=== PATIENT | male | born 1975 | race American Indian/Alaskan Native ===

== ENCOUNTER 2018-06-18 13:23 | Emergency (ER) | payer SELFPAY ==
[2018-06-18 13:43] VITALS: BP 114/81
--- NOTE | 2018-06-18 14:53 | Emergency Department Report ---
Chief Complaint: Medical Clearance Stated Complaint: PAIN Time Seen by Provider: 06/18/18 14:50 - HPI History of Present Illness: 43-year-old male presents to the emergency department with complaint of a 4 to five-day history of increased fatigue, chills and sweats and lightheadedness/dizziness. Over the weekend the patient was doing some cleaning with some strong chemicals and also ended up sleeping in the same area. Since that time, up until today, the patient says that he has been doing nothing but sleeping. He is having intermittent chills and sweats and says that he has had to change his shirt multiple times because of this. He denies any chest pain, cough, diagnosed fever. No past medical history. He has not taken anything for her symptoms prior to arrival. - ROS Review of Systems: Positive for fatigue, chills, sweats, dizziness/lightheadedness Negative for chest pain, shortness of breath, cough - Exam Vital Signs: Vital Signs 06/18/18 13:40 Temperature 99 F Pulse Rate 98 H Respiratory 18 Rate Blood Pressure 114/81 O2 Sat by Pulse 100 Oximetry Physical Exam: Patient is awake and alert and in no acute distress. Heart and lung sounds are normal to auscultation. Cranial nerves intact. MSE screening note: Focused history and physical exam performed. Due to findings the following was ordered: I have ordered a CBC, BMP, TSH and rapid flu. ED Disposition for MSE Condition: Stable
[2018-06-18 15:15] LABS: Hematocrit 46.8 % (35.5-45.6); Hemoglobin 15.6 gm/dl (11.8-15.2); Mean Corpuscular HGB Conc 33 % (32-34); Mean Corpuscular Hemoglobin 31 pg (28-32); Mean Corpuscular Volume 93 fl (84-94); Platelet Count 158 K/mm3 (140-440); Red Blood Count 5.05 M/mm3 (3.65-5.03); Red Cell Distribution Width 13.7 % (13.2-15.2)
[2018-06-18 15:34] LABS: BUN/Creatinine Ratio 7; Blood Urea Nitrogen 11 mg/dL (9-20); Calcium 9.1 mg/dL (8.4-10.2); Hemolysis Index 5
--- NOTE | 2018-06-18 16:23 | XRay Report ---
FINAL REPORT EXAM: XR CHEST ROUTINE 2V HISTORY: COUGH TECHNIQUE: Two view chest PA and lateral PRIORS: None. FINDINGS: Cardiac and mediastinal contours are unremarkable. No focal pulmonary infiltrate is identified. No pleural fluid collection seen. Pulmonary vasculature is unremarkable. IMPRESSION: Negative two-view chest
--- NOTE | 2018-06-18 17:12 | Emergency Department Report ---
Minor Respiratory - HPI Chief Complaint: Medical Clearance Stated Complaint: PAIN Time Seen by Provider: 06/18/18 14:50 Duration: 3 Days Pain Location: Chest Severity: mild Minor Respiratory: Yes Able to Tolerate Fluids, No Rhinorrhea, No Sore Throat, No Ear Pain, No Cough, No Sick Contacts, No Hemoptysis, No Chest Pain, No Shortness of Breath, No Fever Other History: She has a 43-year-old male who presents to the ER complaining of back pain, cold sweats, and dizziness. He states that this occurred after cleaning with some chemicals on Saturday. Vital signs are stable. He nontoxic- appearing his vital signs are stable and he has no fever. ED Review of Systems ROS: Stated complaint: PAIN Other details as noted in HPI Comment: All other systems reviewed and negative Constitutional: chills. denies: fever Eyes: denies: eye pain ENT: denies: ear pain, throat pain Respiratory: cough Cardiovascular: denies: palpitations Endocrine: denies: flushing Gastrointestinal: denies: nausea Genitourinary: denies: urgency Musculoskeletal: denies: back pain Skin: denies: rash Neurological: denies: headache Psychiatric: denies: anxiety Hematological/Lymphatic: denies: easy bleeding ED Past Medical Hx - Past Medical History Previous Medical History?: No - Surgical History Past Surgical History?: No - Family History Family history: no significant - Social History Smoking Status: Never Smoker Substance Use Type: Alcohol - Medications Home Medications: Home Medications Medication Instructions Recorded Confirmed Last Taken Type methylPREDNISolone [Medrol] 4 mg PO DAILY #1 tab.ds.pk 06/18/18 Unknown Rx Minor Respiratory Exam - Exam General: Vital signs noted. No distress. Alert and acting appropriately. HEENT: Yes Moist Mucous Membranes, No Pharyngeal Erythema, No Pharyngeal Exudates, No Rhinorrhea, No Conjuctival Injection, No Frontal Tenderness, No Maxillary Tenderness Ear: Neither TM Bulge, Neither TM Erythema, Neither EAC Pain, Neither EAC Discharge Neck: Yes Supple, No Adenopathy Lungs: Yes Good Air Exchange, No Wheezes, No Ronchi, No Stridor, No Cough, No Labored Respirations, No Retractions, No Use of Accessory Muscles Heart: Yes Regular, No Murmur Abdomen: Yes Normal Bowel Sounds, No Tenderness, No Peritoneal Signs Skin: No Rash, No Edema Neurologic: Alert and oriented, no deficits. Musculoskeletal: Unremarkable. ED Course Vital Signs 06/18/18 13:40 Temperature 99 F Pulse Rate 98 H Respiratory 18 Rate Blood Pressure 114/81 O2 Sat by Pulse 100 Oximetry ED Medical Decision Making - Lab Data Result diagrams: 06/18/18 15:04 06/18/18 15:04 - Radiology Data Radiology results: report reviewed, image reviewed - Medical Decision Making Patient is nontoxic in appearance. He has an unremarkable physical exam. He states that he went to work today and they sent him home because he said he didn't feel good. He is being given a work note. He is also been given referra l to primary care doctor should his symptoms persist. I suspect this is just a pneumonitis from working with chemicals in a closed space. There is no evidence of pulmonary edema on chest x-ray and his labs are all normal. I will send him home with a prednisone Dosepak and [id number] symptom relief Critical care attestation.: If time is entered above; I have spent that time in minutes in the direct care of this critically ill patient, excluding procedure time. ED Disposition Clinical Impression: Pneumonitis Disposition: DC-01 TO HOME OR SELFCARE Is pt being admited?: No Does the pt Need Aspirin: No Condition: Stable Instructions: Chemical Pneumonitis (ED) Additional Instructions: hydrate well with water meds as ordered today diet and activity as tolerated follow up with MD below if it persists see below Prescriptions: methylPREDNISolone [Medrol] 4 mg PO DAILY #1 tab.ds.pk Referrals: AUDREY CABRERA MD [Primary Care Provider] - 3-5 Days SHAYAN SUAREZ MD [Staff Physician] - 3-5 Days Time of Disposition: 17:09
[2018-06-18 17:13] LABS: Band Neutrophils # (Manual) 0.1 K/mm3; Basophils % (Manual) 0 % (0.0-1.8); Eosinophils % (Manual) 0 % (0.0-4.3); Large Platelets Few; Platelet Estimate Consistent w Auto; RBC Morphology Normal; Total Cells Counted 100
[2018-06-18] MEDS ORDERED: DECADRON IM ONE (17:13)
== END 2018-06-18 17:38 | disposition home or self-care (01) ==
LOC: ED 13:23
DX: J18.8 Other pneumonia, unspecified organism (principal)
CPT/HCPCS: 36415; 71046; 80048; 84443; 85007; 85025; 96372; 99283; J1100